=== PATIENT | female | born 1960 | race Caucasian/White ===

== ENCOUNTER → 2017-06-30 | Outpatient (CLI) | payer BC | LOC: LAB 09:27 | DX: R19.7 Diarrhea, unspecified (principal) ==

== ENCOUNTER → 2018-10-04 | Outpatient (CLI) | payer BC ==
[2018-10-04 11:33] LABS: ALBUMIN 4.3 g/dL (3.5-5.0)
[2018-10-04 11:34] LABS: CALCIUM 10.4 mg/dL (8.3-10.5)
[2018-10-04 11:35] LABS: TOTAL PROTEIN 7.7 g/dL (6.4-8.3)
[2018-10-04 11:37] LABS: TOTAL BILIRUBIN 0.3 mg/dL (0.2-1.2)
[2018-10-04 12:06] LABS: EOS # 0.3 (0.04-0.40); EOS % 3.3 % (1.0-5.0); HEMATOCRIT 42.8 % (37.0-47.0); HEMOGLOBIN 13.7 g/dL (12.5-16.0); LYMPH# 1.4 (1.50-4.00); MEAN CELL VOLUME 93 fl (78-100); MEAN CORPUSCULAR HEMOGLOBIN 30 pg (27-31); MEAN CORPUSCULAR HGB CONC 32 g/dL (33-37); MEAN PLATELET VOLUME 10.3 fl (7.4-10.4); MONO # 0.4 (0.20-0.80); NEU # 5.8 (1.40-6.50); PLATELET COUNT 417 K/mm3 (130-400); RED BLOOD COUNT 4.59 M/mm3 (4.10-5.30); RED CELL DISTRIBUTION WIDTH 12.5 % (11.5-14.5); URINE APPEARANCE CLOUDY; URINE BILIRUBIN NEGATIVE (NEGATIVE); URINE COLOR YELLOW; URINE GLUCOSE NEGATIVE (NEGATIVE); URINE KETONE NEGATIVE (NEGATIVE); URINE PROTEIN(semi-quant) NEGATIVE (NEGATIVE); URINE UROBILINOGEN NORMAL (NORMAL); WHITE BLOOD COUNT 7.8 K/mm3 (4.8-10.8)
[2018-10-04 12:07] LABS: URINE BLOOD NEGATIVE (NEGATIVE); URINE LEUKOCYTE ESTERASE TRACE (NEGATIVE); URINE NITRATE POSITIVE (NEGATIVE)
== END ==
LOC: LAB 10:51
PROVIDERS: Family Medicine
DX: Z01.419 Encounter for gynecological examination (general) (routine) without abnormal findings (principal); E03.9 Hypothyroidism, unspecified; N39.0 Urinary tract infection, site not specified; E55.9 Vitamin D deficiency, unspecified

== ENCOUNTER → 2019-01-30 | Outpatient (CLI) | payer BC ==
[~2019-01-30] VITALS: Ht 167.6 cm; Wt 85.5 kg
[~2019-01-30] MED LIST: BENTYL 20MG20 MG/TAB PO; DETROL 2MG TAB2 MG PO; ESTRACE 1MG1 MG/TAB PO; LEVOTHYROXIN0.088 MG PO; PRAVASTATIN SOD20 MG PO; SULFAZINE500 M1 PO
[2019-01-30 10:49] LABS: EOS # 0.3 (0.04-0.40); EOS % 5.1 % (1.0-5.0); HEMATOCRIT 42.7 % (37.0-47.0); HEMOGLOBIN 13.9 g/dL (12.5-16.0); LYMPH# 1.6 (1.50-4.00); MEAN CELL VOLUME 95 fl (78-100); MEAN CORPUSCULAR HEMOGLOBIN 31 pg (27-31); MEAN CORPUSCULAR HGB CONC 33 g/dL (33-37); MEAN PLATELET VOLUME 9.6 fl (7.4-10.4); MONO # 0.3 (0.20-0.80); NEU # 3.8 (1.40-6.50); PLATELET COUNT 304 K/mm3 (130-400); RED BLOOD COUNT 4.52 M/mm3 (4.10-5.30); RED CELL DISTRIBUTION WIDTH 12.5 % (11.5-14.5); WHITE BLOOD COUNT 6.1 K/mm3 (4.8-10.8)
[2019-01-30 11:12] LABS: ALBUMIN 4.5 g/dL (3.5-5.0)
[2019-01-30 11:13] LABS: CALCIUM 10.2 mg/dL (8.3-10.5)
[2019-01-30 11:14] LABS: TOTAL PROTEIN 7.3 g/dL (6.4-8.3)
[2019-01-30 11:16] LABS: TOTAL BILIRUBIN 0.4 mg/dL (0.2-1.2)
[2019-01-30 11:17] VITALS: BP 139/83
== END ==
LOC: LAB 10:39
PROVIDERS: Family Medicine
DX: Z01.818 Encounter for other preprocedural examination (principal)

== ENCOUNTER → 2019-10-16 | Outpatient (CLI) | payer BC ==
[2019-01-30 11:17] VITALS: BP 139/83
[2019-10-16 12:20] LABS: EOS % 0.2 % (1.0-5.0); HEMOGLOBIN 13.9 g/dL (12.5-16.0); LYMPH# 1.3 (1.50-4.00); MEAN CELL VOLUME 94 fl (78-100); MEAN CORPUSCULAR HEMOGLOBIN 31 pg (27-31); MEAN CORPUSCULAR HGB CONC 32 g/dL (33-37); MEAN PLATELET VOLUME 9.5 fl (7.4-10.4); MONO # 0.3 (0.20-0.80); NEU # 3.5 (1.40-6.50); PLATELET COUNT 311 K/mm3 (130-400); RED BLOOD COUNT 4.56 M/mm3 (4.10-5.30); WHITE BLOOD COUNT 5.1 K/mm3 (4.8-10.8)
[2019-10-16 12:38] LABS: ALBUMIN 4.5 g/dL (3.5-5.0)
[2019-10-16 12:39] LABS: CALCIUM 9.8 mg/dL (8.3-10.5)
[2019-10-16 12:41] LABS: TOTAL PROTEIN 7.6 g/dL (6.4-8.3)
[2019-10-16 12:42] LABS: TOTAL BILIRUBIN 0.3 mg/dL (0.2-1.2)
== END ==
LOC: LAB 12:08
PROVIDERS: Family Medicine
DX: Z01.419 Encounter for gynecological examination (general) (routine) without abnormal findings (principal); E55.9 Vitamin D deficiency, unspecified; E78.5 Hyperlipidemia, unspecified; E03.9 Hypothyroidism, unspecified

== ENCOUNTER → 2019-12-05 | Outpatient (CLI) | payer BC ==
[2019-01-30 11:17] VITALS: BP 139/83
== END ==
LOC: RAD 11:45
DX: M51.36 Other intervertebral disc degeneration, lumbar region (principal); M47.816 Spondylosis without myelopathy or radiculopathy, lumbar region; M25.551 Pain in right hip; E03.9 Hypothyroidism, unspecified; G62.9 Polyneuropathy, unspecified; M46.1 Sacroiliitis, not elsewhere classified; Z83.3 Family history of diabetes mellitus

== ENCOUNTER → 2019-12-26 | Outpatient (CLI) | payer BC ==
[2019-01-30 11:17] VITALS: BP 139/83
== END ==
LOC: RAD 07:00
DX: M51.36 Other intervertebral disc degeneration, lumbar region (principal); M48.8X7 Other specified spondylopathies, lumbosacral region; M51.34 Other intervertebral disc degeneration, thoracic region; I51.7 Cardiomegaly; M51.37 Other intervertebral disc degeneration, lumbosacral region; G57.90 Unspecified mononeuropathy of unspecified lower limb; T14.8XXA Other injury of unspecified body region, initial encounter; M19.91 Primary osteoarthritis, unspecified site

== ENCOUNTER 2020-02-21 16:00 | Outpatient (RCR) | payer BC ==
[2019-01-30 11:17] VITALS: BP 139/83
== END 2020-04-01 | disposition home or self-care (01) ==
LOC: PT
DX: M47.817 Spondylosis without myelopathy or radiculopathy, lumbosacral region (principal); M53.3 Sacrococcygeal disorders, not elsewhere classified

== ENCOUNTER → 2020-10-08 | Outpatient (CLI) | payer BC | LOC: RAD 10:45 | DX: D48.5 Neoplasm of uncertain behavior of skin (principal) ==

== ENCOUNTER → 2020-10-25 | Outpatient (CLI) | payer BC ==
[2020-10-25 12:24] LABS: BASO # 0.02 (0.02-0.10); EOS # 0.28 (0.04-0.40); EOS % 4.4 % (1.0-5.0); HEMATOCRIT 43.8 % (37.0-47.0); HEMOGLOBIN 13.9 g/dL (12.5-16.0); LYMPH# 1.68 (1.50-4.00); MEAN CELL VOLUME 94 fl (78-100); MEAN CORPUSCULAR HEMOGLOBIN 30 pg (27-31); MEAN CORPUSCULAR HGB CONC 32 g/dL (33-37); MEAN PLATELET VOLUME 9.6 fl (7.4-10.4); NEU # 4.11 (1.40-6.50); PLATELET COUNT 282 K/mm3 (130-400); RED BLOOD COUNT 4.67 M/mm3 (4.10-5.30); RED CELL DISTRIBUTION WIDTH 12.3 % (11.5-14.5); WHITE BLOOD COUNT 6.4 K/mm3 (4.8-10.8)
[2020-10-25 12:32] LABS: ALBUMIN 4.4 g/dL (3.4-4.8); POTASSIUM 4.6 mmol/L (3.5-5.1)
[2020-10-25 12:33] LABS: CALCIUM 9.9 mg/dL (8.3-10.5)
[2020-10-25 12:35] LABS: TOTAL PROTEIN 7.4 g/dL (6.2-8.1)
[2020-10-25 12:36] LABS: TOTAL BILIRUBIN 0.4 mg/dL (0.2-1.2)
[2020-10-25 22:14] LABS: T3 FREE 2.5 pg/mL (1.7-3.7)
== END ==
LOC: RAD 12:02 → LAB 12:02
PROVIDERS: Family Medicine
DX: Z00.00 Encounter for general adult medical examination without abnormal findings (principal); E03.9 Hypothyroidism, unspecified; E78.5 Hyperlipidemia, unspecified

== ENCOUNTER → 2020-11-25 | Day surgery (SDC) | payer BC | END | disposition home or self-care (01) | LOC: MSO 07:08 | DX: D17.1 Benign lipomatous neoplasm of skin and subcutaneous tissue of trunk (principal); E78.00 Pure hypercholesterolemia, unspecified; E07.9 Disorder of thyroid, unspecified; N32.89 Other specified disorders of bladder; K50.90 Crohn's disease, unspecified, without complications; I34.0 Nonrheumatic mitral (valve) insufficiency; I34.1 Nonrheumatic mitral (valve) prolapse; Z79.890 Hormone replacement therapy; Z79.899 Other long term (current) drug therapy | CPT/HCPCS: J0171; J1885; J2550; J2704; J3010; J7120 ==

== ENCOUNTER → 2021-10-27 | Outpatient (CLI) | payer BC ==
[2021-10-27 14:41] LABS: BASO # 0.03 K/mm3 (0.02-0.10); EOS # 0.33 K/mm3 (0.04-0.40); EOS % 4.9 % (1.0-5.0); HEMOGLOBIN 15.1 g/dL (12.5-16.0); LYMPH# 1.87 K/mm3 (1.50-4.00); MEAN CELL VOLUME 95 fl (78-100); MEAN CORPUSCULAR HEMOGLOBIN 30 pg (27-31); MEAN CORPUSCULAR HGB CONC 32 g/dL (33-37); MEAN PLATELET VOLUME 9.5 fl (7.4-10.4); PLATELET COUNT 310 K/mm3 (130-400); RED BLOOD COUNT 4.96 M/mm3 (4.10-5.30); RED CELL DISTRIBUTION WIDTH 12.5 % (11.5-14.5); WHITE BLOOD COUNT 6.7 K/mm3 (4.8-10.8)
[2021-10-27 14:46] LABS: POTASSIUM 4.1 mmol/L (3.5-5.1)
[2021-10-27 14:47] LABS: ALBUMIN 4.8 g/dL (3.4-4.8)
[2021-10-27 14:48] LABS: CALCIUM 10.7 mg/dL (8.3-10.5)
[2021-10-27 14:49] LABS: TOTAL PROTEIN 7.9 g/dL (6.2-8.1)
[2021-10-27 14:51] LABS: TOTAL BILIRUBIN 0.4 mg/dL (0.2-1.2)
[2021-10-27 17:41] LABS: ERYTHROCYTE SEDIMENTATION RATE 10 mm/hr (0-30)
[2021-10-28 12:54] LABS: ANA SCREEN with REFLEX Negative (Negative)
== END ==
LOC: LAB 14:16
PROVIDERS: Family Medicine
DX: Z13.820 Encounter for screening for osteoporosis (principal); Z00.00 Encounter for general adult medical examination without abnormal findings; Z12.31 Encounter for screening mammogram for malignant neoplasm of breast; G44.89 Other headache syndrome; G89.29 Other chronic pain; K50.90 Crohn's disease, unspecified, without complications; E78.5 Hyperlipidemia, unspecified; E03.9 Hypothyroidism, unspecified; M47.896 Other spondylosis, lumbar region; M79.10 Myalgia, unspecified site; E66.9 Obesity, unspecified; L40.9 Psoriasis, unspecified; R53.83 Other fatigue; M25.511 Pain in right shoulder; M79.671 Pain in right foot; M79.641 Pain in right hand; M79.642 Pain in left hand; E55.9 Vitamin D deficiency, unspecified; M25.551 Pain in right hip; M25.541 Pain in joints of right hand

== ENCOUNTER → 2021-11-13 | Outpatient (CLI) | payer BC | LOC: VAS 13:00 → RAD 13:00 | DX: R60.0 Localized edema (principal); R53.83 Other fatigue ==

== ENCOUNTER → 2021-11-14 | Outpatient (CLI) | payer BC | LOC: CARDREHAB 09:18 | DX: R53.83 Other fatigue (principal) | CPT/HCPCS: A9500 ==

== ENCOUNTER → 2023-09-10 | Outpatient (CLI) | payer MEDICARE ==
[~2023-09-10] MED LIST changes: +Gadoterate 20 ML VIAL IV ONE
== END ==
LOC: RAD 10:27
DX: K57.30 Diverticulosis of large intestine without perforation or abscess without bleeding (principal); Z90.710 Acquired absence of both cervix and uterus
CPT/HCPCS: A9575